=== PATIENT | female | born 1995 | race Caucasian/White ===

== ENCOUNTER 2021-01-14 14:26 | Emergency (ER) | payer OTHER ==
--- NOTE | 2021-01-14 14:46 | ED Physician Documentation ---
PD HPI FEMALE - Stated complaint Stated Complaint: FEMALE /4 WEEKS - Chief complaint Chief Complaint: Abd Pain - History obtained from History obtained from: Patient - History of Present Illness Timing - onset: Today Timing - duration: Days (1) Timing - details: Gradual onset Pain level max: 1 Pain level max: 1 Associated symptoms: Vaginal bleeding (spotting). No: Fever Contributing factors: Recently seen: Not recently seen - Additional information Additional information: 25-year-old female, 2 para 1, presents to the emergency department stating she is about 4 weeks status post her LMP and had 2 positive test on Friday. Today started having spotting and mild cramping. Nothing makes it better or worse. Is not on any contraceptives currently. Has not started vitamins yet. No fever. No chills. Review of Systems Constitutional: denies: Fever, Chills Throat: denies: Sore throat Cardiac: denies: Chest pain / pressure, Palpitations Respiratory: denies: Dyspnea, Cough GI: denies: Nausea, Vomiting, Diarrhea Skin: denies: Rash Musculoskeletal: denies: Neck pain, Back pain Neurologic: denies: Headache PD PAST MEDICAL HISTORY - Past Medical History Past Medical History: No - Past Surgical History Past Surgical History: No - Allergies Allergies/Adverse Reactions: Allergies Allergy/AdvReac Type Severity Reaction Status Date / Time No Known Drug Allergies Allergy Verified 01/14/21 14:35 PD ED PE NORMAL - Vitals Vital signs reviewed: Yes - General General: Alert and oriented X 3, No acute distress, Well developed/nourished - HEENT HEENT: Moist mucous membranes - Neck Neck: Supple, no meningeal sign - Cardiac Cardiac: RRR, Strong equal pulses - Respiratory Respiratory: No respiratory distress, Clear bilaterally - Abdomen Abdomen: Soft, Non tender, Non distended - Back Back: No CVA TTP - Derm Derm: Warm and dry - Neuro Neuro: Alert and oriented X 3 - Psych Psych: Normal mood, Normal affect Results - Vitals Vitals: Vital Signs - 24 hr 01/14/21 01/14/21 14:31 16:35 Temperature 36.4 C L Heart Rate 84 70 Respiratory 15 16 Rate Blood Pressure 132/69 H 116/78 O2 Saturation 99 99 Oxygen O2 Source Room air - Labs Labs: Laboratory Tests 01/14/21 01/14/21 01/14/21 14:46 14:46 14:46 WBC 9.9 RBC 4.44 Hgb 13.1 Hct 38.9 MCV 87.6 MCH 29.5 MCHC 33.7 RDW 12.2 Plt Count 326 MPV 9.5 Neut # (Auto) 7.5 H Lymph # (Auto) 1.7 Ransom # (Auto) 0.5 Eos # (Auto) 0.1 Baso # (Auto) 0.1 Absolute Nucleated RBC 0.00 Nucleated RBC % 0.0 PT 13.7 H INR 1.2 Sodium 138 Potassium 3.7 Chloride 102 Carbon Dioxide 26 Anion Gap 10.0 BUN 8 Creatinine 0.5 Estimated GFR (MDRD) 152 Glucose 98 Calcium 9.1 Total Bilirubin 0.8 AST 21 ALT 31 Alkaline Phosphatase 58 Total Protein 8.1 Albumin 4.6 Globulin 3.5 Albumin/Globulin Ratio 1.3 Lipase 30 HCG, Quant Urine Color Urine Clarity Urine pH Ur Specific [place] Urine Protein Urine Glucose (UA) Urine Ketones Urine Occult Blood Urine Nitrite Urine Bilirubin Urine Urobilinogen Ur Leukocyte Esterase Ur Microscopic Review Urine Culture Comments Blood Type 01/14/21 01/14/21 01/14/21 14:46 14:46 14:52 WBC RBC Hgb Hct MCV MCH MCHC RDW Plt Count MPV Neut # (Auto) Lymph # (Auto) [place]ansom # (Auto) Eos # (Auto) Baso # (Auto) Absolute Nucleated RBC Nucleated RBC % PT INR Sodium Potassium Chloride Carbon Dioxide Anion Gap BUN Creatinine Estimated GFR (MDRD) Glucose Calcium Total Bilirubin AST ALT Alkaline Phosphatase Total Protein Albumin Globulin Albumin/Globulin Ratio Lipase HCG, Quant 234.59 Urine Color YELLOW Urine Clarity CLEAR Urine pH 6.0 Ur Specific [place] 1.015 Urine Protein NEGATIVE Urine Glucose (UA) NEGATIVE Urine Ketones 15 H Urine Occult Blood TRACE-INTA Urine Nitrite NEGATIVE Urine Bilirubin NEGATIVE Urine Urobilinogen 0.2 (NORMAL) Ur Leukocyte Esterase NEGATIVE Ur Microscopic Review NOT INDICATED Urine Culture Comments NOT INDICATED Blood Type A POSITIVE - Rads (name of study) OB US Radiology: Prelim report reviewed, EMP read contemporaneously, See rad report PD MEDICAL DECISION MAKING - ED course Complexity details: reviewed results, re-evaluated patient, considered differential, d/w patient ED course: Patient with likely early versus miscarriage. Her LMP was about 4 weeks ago, hCG is around 250. Ectopic precautions given at bedside. Recommend that she follow-up with OB in 3 days for repeat hCG. Abdomen is soft, nontender nondistended on serial exam. Patient counseled regarding signs and symptoms for which I believe and urgent re-evaluation would be necessary. Patient with good understanding of and agreement to plan and is comfortable going home at this time This document was made in part using voice recognition software. While efforts are made to proofread this document, sound alike and grammatical errors may occur. No findings of are seen. Differential diagnosis includes completed spontaneous miscarriage. Ectopic and early are also possible. Close clinical follow-up with serial beta hCG measurements and serial ultrasound would be recommended, as clinically appropriate. Departure - Departure Disposition: Home, Self Care Clinical Impression: Vaginal bleeding affecting early Condition: Good Instructions: ED Miscarriage Poss Follow-Up: [facility] [Provider Group] - Within 3 Days Comments: You need to have a repeat hCG done in about 3 days. This can be ordered by your doctor or the OB clinic. You can call them on Friday. Your hCG was 235 today. Return if you worsen. Follow-up with OB for further care Discharge Date/Time: 01/14/21 16:43
[2021-01-14 14:56] LABS: BASOPHILS # (AUTO) 0.1 10^3/uL (0.0-0.1); BASOPHILS % (AUTO) 0.9 %; EOSINOPHILS # (AUTO) 0.1 10^3/uL (0.0-0.7); EOSINOPHILS % (AUTO) 1.1 %; HCT - HEMATOCRIT 38.9 % (37.0-47.0); HGB - HEMOGLOBIN 13.1 g/dL (12.0-16.0); LYMPHOCYTES # (AUTO) 1.7 10^3/uL (1.5-3.5); LYMPHOCYTES % (AUTO) 17.4 %; MEAN CORPUSCULAR HEMOGLOBIN 29.5 pg (27.0-31.0); MEAN CORPUSCULAR HGB CONC 33.7 g/dL (32.0-36.0); MEAN CORPUSCULAR VOLUME 87.6 fL (81.0-99.0); MEAN PLATELET VOLUME 9.5 fL (7.9-10.8); MONOCYTES # (AUTO) 0.5 10^3/uL (0.0-1.0); MONOCYTES % (AUTO) 4.7 %; NEUTROPHILS # (AUTO) 7.5 10^3/uL (1.5-6.6); NEUTROPHILS % (AUTO) 75.5 %; PLT - PLATELET COUNT 326 10^3/uL (130-450); RED BLOOD COUNT 4.44 10^6/uL (4.20-5.40); RED CELL DISTRIBUTION WIDTH 12.2 % (12.0-15.0); WHITE BLOOD COUNT 9.9 x10^3/uL (4.8-10.8)
[2021-01-14 14:58] LABS: BILIRUBIN,URINE NEGATIVE (NEGATIVE); GLUCOSE, URINE (UA) NEGATIVE (NEGATIVE); KETONES,URINE (UA) 15 mg/dL (NEGATIVE); LEUKOCYTE ESTERASE, URINE NEGATIVE (NEGATIVE); NITRITE,URINE NEGATIVE (NEGATIVE); OCCULT BLOOD,URINE TRACE-INTA (NEGATIVE); PROTEIN,URINE NEGATIVE (NEGATIVE); UROBILINOGEN,URINE 0.2 (NORMAL) E.U./dL (NORMAL)
[2021-01-14 14:59] LABS: CLARITY,URINE CLEAR (CLEAR)
[2021-01-14 15:03] LABS: INR 1.2 (0.8-1.2); PT - PROTHROMBIN TIME 13.7 secs (9.9-12.6)
[2021-01-14 15:20] LABS: ALBUMIN 4.6 g/dL (3.2-5.5); ALBUMIN/GLOBULIN RATIO 1.3 (1.0-2.2); BILIRUBIN,TOTAL 0.8 mg/dL (0.2-1.0); CALCIUM 9.1 mg/dL (8.5-10.3); CREATININE 0.5 mg/dL (0.4-1.0); POTASSIUM 3.7 mmol/L (3.5-5.0); TOTAL PROTEIN 8.1 g/dL (6.7-8.2)
[2021-01-14 16:44] VITALS: BP 116/78
--- NOTE | 2021-01-14 16:47 | Ultrasound Report ---
PROCEDURE: OB First Trimester w/TV INDICATIONS: pelvic pain and bleeding, 4 weeks preg OUTSIDE/PRIOR DATING DATA: Last menstrual period (LMP): Unsure. LMP-based estimated date of delivery (VINCE): Not applicable. First dating scan (date and location): Not applicable. Estimated date of delivery (VINCE) from first dating scan: Not applicable. TECHNIQUE: Real-time scanning was performed of the fetus and maternal pelvic organs, with image documentation. Endovaginal scanning was also performed to better visualize the fetus and maternal ovaries. COMPARISON: None FINDINGS: Embryo: No findings of an intrauterine can be seen. Measurement variability in dating: +/- 4 weeks by LMP, +/- 7 days by mean sac diameter (use before 6 weeks gestation if crown-rump length not able to be measured), +/- 5 days by crown-rump length (6-12 weeks gestation). Maternal organs: Ovaries demonstrate an apparent right ovarian corpus luteum. There is free fluid se en within the pelvic cul-de-sac. IMPRESSION: No findings of are seen. Differential diagnosis includes completed spontaneous miscarriage. Ectopic and early are also possible. Close clinical follow-up with serial beta hCG measurements and serial ultrasound would be recommended , as clinically appropriate. Note: Concordant preliminary findings given by the newsstand vendor upon the completion of the examination to Dr. Monahan at 4:20 PM on 01/14/2021. Reviewed by: Winston Maddox MD on 01/14/2021 3:45 PM [employer] Approved by: Winston Maddox MD on 01/14/2021 3:45 PM [employer] Station ID: [id number]
== END 2021-01-14 16:43 | disposition home or self-care (01) ==
LOC: ED 14:26
DX: O20.9 Hemorrhage in early pregnancy, unspecified (principal)
CPT/HCPCS: 36415; 80053; 81001; 81003; 83690; 84702; 85025; 85610; 86900; 86901; 87086; 99284

== ENCOUNTER 2021-01-16 16:39 | Day surgery (SDC) | payer OTHER ==
[2021-01-16 17:13] LABS: BASOPHILS # (AUTO) 0.1 10^3/uL (0.0-0.1); BASOPHILS % (AUTO) 0.9 %; EOSINOPHILS # (AUTO) 0.2 10^3/uL (0.0-0.7); EOSINOPHILS % (AUTO) 2.5 %; HGB - HEMOGLOBIN 13.1 g/dL (12.0-16.0); LYMPHOCYTES # (AUTO) 2.3 10^3/uL (1.5-3.5); MEAN CORPUSCULAR HEMOGLOBIN 30.1 pg (27.0-31.0); MEAN CORPUSCULAR HGB CONC 34.5 g/dL (32.0-36.0); MEAN CORPUSCULAR VOLUME 87.4 fL (81.0-99.0); MEAN PLATELET VOLUME 9.3 fL (7.9-10.8); MONOCYTES # (AUTO) 0.6 10^3/uL (0.0-1.0); MONOCYTES % (AUTO) 6.3 %; NEUTROPHILS # (AUTO) 6.4 10^3/uL (1.5-6.6); NEUTROPHILS % (AUTO) 65.9 %; PLT - PLATELET COUNT 347 10^3/uL (130-450); RED BLOOD COUNT 4.35 10^6/uL (4.20-5.40); RED CELL DISTRIBUTION WIDTH 12.2 % (12.0-15.0); WHITE BLOOD COUNT 9.7 x10^3/uL (4.8-10.8)
[2021-01-16 17:27] LABS: ALBUMIN 4.9 g/dL (3.2-5.5); ALBUMIN/GLOBULIN RATIO 1.5 (1.0-2.2); BILIRUBIN,TOTAL 0.6 mg/dL (0.2-1.0); CALCIUM 9.3 mg/dL (8.5-10.3); CREATININE 0.6 mg/dL (0.4-1.0); POTASSIUM 3.6 mmol/L (3.5-5.0); TOTAL PROTEIN 8.2 g/dL (6.7-8.2)
--- NOTE | 2021-01-16 18:37 | ED Physician Documentation ---
History of Present Illness - Stated complaint Stated Complaint: CRAMPS/BLEEDING - Chief complaint Chief Complaint: Abd Pain - Additonal information Additional information: 25-year-old female who is approximately 4 weeks from her last menstrual period presents the emergency department with a mild increase in vaginal spotting however increased lower abdominal cramping and pain. She was seen 2 days ago and had a ultrasound that Did not show an IUP. Patient was to follow-up in 48 hours for repeat hCG or sooner to the ER with pain. no fevers, no vomiting. hCG 48 hours ago was only about 250. Review of Systems Constitutional: reports: Reviewed and negative Ears: reports: Reviewed and negative Nose: reports: Reviewed and negative Throat: reports: Reviewed and negative Cardiac: reports: Reviewed and negative Respiratory: reports: Reviewed and negative GI: reports: Abdominal Pain. denies: Nausea, Vomiting : reports: Reviewed and negative Skin: reports: Reviewed and negative Musculoskeletal: reports: Reviewed and negative Neurologic: reports: Reviewed and negative Psychiatric: reports: Reviewed and negative Endocrine: reports: Reviewed and negative PD PAST MEDICAL HISTORY - Past Surgical History Past Surgical History: No - Present Medications Home Medications: Ambulatory Orders Medication Instructions Recorded Confirmed Pnv No.95/Ferrous Fum/Folic AC 1 tab ORAL DAILY 01/16/21 01/16/21 [ Tablet] - Allergies Allergies/Adverse Reactions: Allergies Allergy/AdvReac Type Severity Reaction Status Date / Time No Known Drug Allergies Allergy Verified 01/16/21 16:55 - Social History Does the pt smoke?: No Smoking Status: Never smoker PD ED PE EXPANDED - General General: Alert, No acute distress - Cardiac Cardiac: Abnormal Rate, Radial strong equal, Pedal strong equal. No: Murmur Present - Respiratory Respiratory: Clear to ausultation jessica. No: Distress, Labored - Abdomen Abdomen: Normal Bowel sounds, Tender to palpation (Generalized nonfocal lower pelvic tenderness to palpation. No guarding or rebound.) - Derm Derm: Normal color, Warm and dry. No: Rash - Extremities Extremities: Normal. No: Deformity, Tenderness - Neuro Neuro: Alert and Oriented X 3, CNII-XII intact - GCS Eye Opening: Spontaneous Motor: Obeys Commands Verbal: Oriented Total: 15 Results - Vitals Vitals: Vital Signs - 24 hr 01/16/21 01/16/21 01/16/21 16:57 19:00 20:13 Temperature 36.7 C 36.7 C 36.7 C Heart Rate 106 H 89 99 Respiratory 18 16 16 Rate Blood Pressure 115/74 118/72 115/87 H O2 Saturation 99 99 98 01/16/21 01/16/21 01/16/21 22:57 23:02 23:07 Temperature 37.7 C 37.7 C 37.7 C Heart Rate 100 120 H 119 H Respiratory 15 15 14 Rate Blood Pressure 108/53 L 112/52 L 114/67 O2 Saturation 100 100 100 01/16/21 01/16/21 23:12 23:21 Temperature 37.7 C 37.7 C Heart Rate 118 H 106 H Respiratory 17 12 Rate Blood Pressure 119/70 110/72 O2 Saturation 98 99 Oxygen O2 Source Room air - Labs Labs: Laboratory Tests 01/16/21 01/16/21 01/16/21 17:10 17:10 18:37 WBC 9.7 RBC 4.35 Hgb 13.1 Hct 38.0 MCV 87.4 MCH 30.1 MCHC 34.5 RDW 12.2 Plt Count 347 MPV 9.3 Neut # (Auto) 6.4 Lymph # (Auto) 2.3 Gage # (Auto) 0.6 Eos # (Auto) 0.2 Baso # (Auto) 0.1 Absolute Nucleated RBC 0.00 Nucleated RBC % 0.0 Sodium 136 Potassium 3.6 Chloride 102 Carbon Dioxide 27 Anion Gap 7.0 BUN 7 Creatinine 0.6 Estimated GFR (MDRD) 123 Glucose 99 Calcium 9.3 Total Bilirubin 0.6 AST 21 ALT 31 Alkaline Phosphatase 55 Total Protein 8.2 Albumin 4.9 Globulin 3.3 Albumin/Globulin Ratio 1.5 Lipase 30 HCG, Quant 357.23 Nasal Adenovirus (PCR) Nasal B. parapertussis DNA (PCR) Nasal Coronavir 229E PCR Nasal Coronavir HKU1 PCR Nasal Coronavir NL63 PCR Nasal Coronavir OC43 PCR Nasal Enterovir/Rhinovir PCR Nasal Influenza B PCR Nasal Influenza A PCR Nasal Parainfluen 1 PCR Nasal Parainfluen 2 PCR Nasal Parainfluen 3 PCR Nasal Parainfluen 4 PCR Nasal RSV (PCR) Nasal B.pertussis DNA PCR Nasal C.pneumoniae (PCR) Jaquan Human Metapneumo PCR Nasal M.pneumoniae (PCR) Nasal SARS-CoV-2 (PCR) Blood Type Antibody Screen 06/01/21 06/01/21 19:00 20:31 WBC RBC Hgb Hct MCV MCH MCHC RDW Plt Count MPV Neut # (Auto) Lymph # (Auto) Gage # (Auto) Eos # (Auto) Baso # (Auto) Absolute Nucleated RBC Nucleated RBC % Sodium Potassium Chloride Carbon Dioxide Anion Gap BUN Creatinine Estimated GFR (MDRD) Glucose Calcium Total Bilirubin AST ALT Alkaline Phosphatase Total Protein Albumin Globulin Albumin/Globulin Ratio Lipase HCG, Quant Nasal Adenovirus (PCR) NOT DETECTED Nasal B. parapertussis DNA (PCR) NOT DETECTED Nasal Coronavir 229E PCR NOT DETECTED Nasal Coronavir HKU1 PCR NOT DETECTED Nasal Coronavir NL63 PCR NOT DETECTED Nasal Coronavir OC43 PCR NOT DETECTED Nasal Enterovir/Rhinovir PCR NOT DETECTED Nasal Influenza B PCR NOT DETECTED Nasal Influenza A PCR NOT DETECTED Nasal Parainfluen 1 PCR NOT DETECTED Nasal Parainfluen 2 PCR NOT DETECTED Nasal Parainfluen 3 PCR NOT DETECTED Nasal Parainfluen 4 PCR NOT DETECTED Nasal RSV (PCR) NOT DETECTED Nasal B.pertussis DNA PCR NOT DETECTED Nasal C.pneumoniae (PCR) NOT DETECTED Jaquan Human Metapneumo PCR NOT DETECTED Nasal M.pneumoniae (PCR) NOT DETECTED Nasal SARS-CoV-2 (PCR) NOT DETECTED Blood Type A POSITIVE Antibody Screen NEGATIVE - Rads (name of study) Pelvic US Radiology: See rad report, Other (Hemoperitoneum with left adnexal mass concerning for ectopic/ruptured ectopic.) PD MEDICAL DECISION MAKING - ED course Complexity details: reviewed results, re-evaluated patient, d/w patient, d/w family, d/w wallpaper consultant (RAISA) ED course: 25-year-old female presents the emergency department for evaluation of new onset lower pelvic pain in the setting of first trimester . Seen here 2 days ago with a quant of 250 however pelvic ultrasound did not reveal an IUP. Her hCG is rising today to nearly 347. Concern in the differential is for an ectopic . 1954: e d tech has called me to the bedside. She does reveal that there is a cystic structure near the left adnexa with possible gestational sac. There is also hemoperitoneum within the abdomen. This is concerning for ectopic versus ruptured ectopic. I have spoken with Dr. Raines on-call for OB and he will be at the bedside emergently. Patient is hemodynamically stable without tachycardia or hypotension. I have advised the nurses to make sure that they have 2 large-bore IVs. Patient is typed and screened. 2034: Dr. Raines at bedside, plans to take the patient emergent to the OR for suspected ruptured ectopic Departure - Departure Disposition: ED Transfer to SDS Clinical Impression: Ectopic Qualifiers: Location of ectopic : unspecified location Intrauterine status: without intrauterine Qualified Code(s): O00.90 - Unspecified ectopic without intrauterine Discharge Date/Time: 01/16/21 22:01
--- NOTE | 2021-01-16 20:47 | HISTORY & PHYSICAL EXAMINATION ---
History and Physical - History and Physical Identification: Patient is a 25-year-old G2, P1 female whose last menstrual period was approximately 11 December. She states she has regular periods.Pelvic pain . History of present illness patient states that she had a last menstrual period of 11 December. She states that 2 days ago she developed pelvic pain as well as bleeding. She was seen in the ED at which time she had a quantitative hCG of 250. She did not have any . Inside the uterus. Last night the pain has continued to increase in strength. Her bleeding also continues at this time. Patient states it hurts to take a deep breath in the pelvic area. She has had an ultrasound which shows evidence of some left adnexal mass as well as left adnexal fluid. The right area showed evidence of possible paraovarian cyst. The uterus is empty at this time. Patient denies any history of any STIs chlamydia or appendicitis. She denies any history of PID. Past medical history is positive for inflamed liver. Surgical history none Allergies none known Current medications vitamins Habits patient is a history of vaping but is stopped since her Social history patient is to an [employer]. She works as a homemaker. Family history is positive for gestational diabetes as well as diabetes and a mother of father who of an NH in her sister who has had difficulty clotting disorders. Physical examination is patient well-developed well-nourished white female She is in no acute distress at this time HEENT pupils are equal round extraocular muscles intact thyroid not palpably enlarged heart regular rate and rhythm pulminarylung wiggins are clear without rales or wheezes abdomen shows tenderness in the pelvic area. There is localized predominantly left lower quadrant. Bowel sounds are active back no spinal or CVA tenderness noted pelvic examination there is brown blood noted in the pelvic vault there is cervical motion tenderness particularly the patient's left. The left adnexal area is also tenderness. Impression most likely this represented a ruptured ectopic . Plan perform laparoscopic diagnosis with probable removal of the left tube. Patient is aware of the possible need to remove the left ovary also. Risks and benefits of explained the patient including those but not limited to bleeding, infection, injury to the pelvic organs. This includes the uterus, tubes, ovaries, bowel, bladder. She is also aware of the potential DVT with PE. Patient is aware that a ruptured ectopic is a very serious condition.
[2021-01-16] MEDS ORDERED: CITRIC ACID/SODIUM CITRATE 15 ML UDC PO ONE ×2 (21:09→21:20)
--- NOTE | 2021-01-16 21:13 | ANESTHESIA ---
Pre-Anesthesia VS, & Labs - Diagnosis Left adenxal mass, possible ectopic - Procedure diagnostic laparoscopy Vital Signs: Temp Pulse Resp BP Pulse Ox 36.7 C 99 16 115/87 H 98 01/16/21 20:13 01/16/21 20:13 01/16/21 20:13 01/16/21 20:13 01/16/21 20:13 Height: 5 ft 4 in Weight (kg): 75.75 kg Body Mass Index: 28.6 BMI Classification: Overweight - NPO Other Last Food Intake: 1600 - Is Patient ?: Yes (HCG positive) - Lab Results Current Lab Results: Laboratory Tests 01/16/21 19:00: Blood Type A POSITIVE, Antibody Screen NEGATIVE 01/16/21 18:37: HCG, Quant 357.23 01/16/21 17:10: Sodium 136, Potassium 3.6, Chloride 102, Carbon Dioxide 27, Anion Gap 7.0, BUN 7, Creatinine 0.6, Estimated GFR (MDRD) 123, Glucose 99, Calcium 9.3, Total Bilirubin 0.6, AST 21, ALT 31, Alkaline Phosphatase 55, Total Protein 8.2, Albumin 4.9, Globulin 3.3, Albumin/Globulin Ratio 1.5, Lipase 30 01/16/21 17:10: WBC 9.7, RBC 4.35, Hgb 13.1, Hct 38.0, MCV 87.4, MCH 30.1, MCHC 34.5, RDW 12.2, Plt Count 347, MPV 9.3, Neut # (Auto) 6.4, Lymph # (Auto) 2.3, [place] # (Auto) 0.6, Eos # (Auto) 0.2, Baso # (Auto) 0.1, Absolute Nucleated RBC 0.00, Nucleated RBC % 0.0 Fish Bones: 01/16/21 17:10 01/16/21 17:10 Home Medications and Allergies Home Medications: Ambulatory Orders Pnv No.95/Ferrous Fum/Folic AC [ Tablet] 1 tab ORAL DAILY 01/16/21 Pnv No.95/Ferrous Fum/Folic AC [ Tablet] 1 tab ORAL DAILY 01/16/21 Allergies/Adverse Reactions: Allergies Allergy/AdvReac Type Severity Reaction Status Date / Time No Known Drug Allergies Allergy Verified 01/16/21 16:55 Anes History & Medical History - Anesthetic History Family history of Anesthesia Complications: Denies Family history of Malignant Hyperthermia: Denies - Medical History Cardiovascular: reports: None Pulmonary: reports: Asthma (last inhalor use >6mo ago) Gastrointestinal: reports: Other ("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 not followed up with) Urinary: reports: None Neuro: reports: None Musculoskeletal: reports: None Endocrine/Autoimmune: reports: None Blood Disorders: reports: None Skin: reports: None Smoking Status: Former smoker (was vaping until ) Psychosocial: reports: No issues indicated History of Cancer?: No Exam General: Alert, Oriented x3, Cooperative, No acute distress Dental: WNL Mouth Openin Fingerbreadth Neck Mobility: Normal Mallampati classification: II Thyromental Distance: 4-6 cm Mental/Cognitive Status: Alert/Oriented X3, Normal for patient Plan Anesthesia Type: General (with RSI) Consent for Procedure(s) Verified and Reviewed: Yes Code Status: Attempt Resuscitation ASA classification: 2-Mild systemic disease Is this case an emergency?: Yes
[2021-01-16] MEDS ORDERED: ATROPINE ABBOJECT 1 MG/10 ML SYRINGE IVP PRN (21:14)
[2021-01-16] MEDS ORDERED: fentaNYL 100 MCG/2 ML VIAL IVP PRN (21:14)
[2021-01-16] MEDS ORDERED: HYDROmorphone 0.5 MG/0.5 ML SYRINGE IVP PRN ×2 (21:14→23:07)
[2021-01-16] MEDS ORDERED: NALOXONE 0.4 MG/ML VIAL IVP PRN (21:14)
[2021-01-16] MEDS ORDERED: MORPHINE 2 MG/ML CARPUJECT IVP PRN (21:14)
[2021-01-16] MEDS ORDERED: ONDANSETRON 4 MG/2 ML VIAL IVP PRN ×2 (21:14→23:07)
[2021-01-16] MEDS ORDERED: PROPOFOL 200 MG/20 ML VIAL IVP ONE (21:17)
[2021-01-16] MEDS ORDERED: LIDOCAINE-MPF 2% 5 ML VIAL ONE (21:17)
[2021-01-16] MEDS ORDERED: MIDAZOLAM 2 MG/2 ML VIAL ONE (21:17)
[2021-01-16] MEDS ORDERED: SUCCINYLCHOLINE 200 MG/10 ML VIAL ONE (21:18)
[2021-01-16] MEDS ORDERED: LIDOCAINE MPF 2%-EPI 1:200000 20 ML VIAL ONE (21:24)
[2021-01-16] MEDS ORDERED: BUPIVACAINE 0.5% PF 30 ML VIAL ONE (21:24)
[2021-01-16 21:35] LABS: B. PARAPERTUSSIS- RESP PCR PAN NOT DETECTED; B. PERTUSSIS- RESP PCR PANEL NOT DETECTED; C. PNEUMONIAE- RESP PCR PANEL NOT DETECTED; CORONAVIRUS 229E-RESP PCR NOT DETECTED; CORONAVIRUS HKU1-RESP PCR NOT DETECTED; CORONAVIRUS NL63-RESP PCR NOT DETECTED; CORONAVIRUS OC43-RESP PCR NOT DETECTED; HUMAN METAPNEUMOVIRUS NOT DETECTED; INFLUENZA A- RESP PCR PANEL NOT DETECTED; INFLUENZA B - RESP PCR PANEL NOT DETECTED; M. PNEUMONIAE- RESP PCR PANEL NOT DETECTED; PARAINFLUENZA VIRUS 1 NOT DETECTED; PARAINFLUENZA VIRUS 2 NOT DETECTED; PARAINFLUENZA VIRUS 3 NOT DETECTED; PARAINFLUENZA VIRUS 4 NOT DETECTED; RHINOVIRUS/ENTEROVIRUS NOT DETECTED; RSV- RESP PCR PANEL NOT DETECTED; SARS-CoV-2 -RESP PCR PANEL NOT DETECTED
--- NOTE | 2021-01-16 21:43 | Ultrasound Report ---
PROCEDURE: OB First Trimester w/TV INDICATIONS: POSSIBLE MISCARRIAGE OUTSIDE/PRIOR DATING DATA: Last menstrual period (LMP): Unsure. Beta-hCG level: 357, increased from 234 on 01/14/2021. TECHNIQUE: Real-time scanning was performed of the fetus and maternal pelvic organs, with image documentation. Endovaginal scanning was also performed to better visualize the fetus and maternal ovaries. COMPARISON: 01/14/2021. FINDINGS: Uterus: No intrauterine identified. No endometrial fluid. Adnexae: The right ovary measures 2.6 x 2.2 x 2.3 cm and the left ovary measures 2.1 x 1.1 x 3.0 cm. And the left adnexa, there is a heterogeneous lobulated masslike structure measuring approximately 4 .1 x 3.0 x 2.7 cm. There is internal vascularity on color Doppler interrogation. A cystic component m easuring up to 1.1 cm is identified within this masslike structure. There is a small cystic structure suggestive of a parapharyngeal cyst in the right adnexa measuring up to 0.8 x 0.6 x 0.8 cm. There is a moderate amount of complex free fluid in the pelvis including within the pelvic cul-de-sac and left adnexa suspicious for hemoperitoneum. IMPRESSION: 1. Heterogeneous left adnexal mass within internal cystic component suspicious for a ruptured ectopic with associated blood clot given the progressive increase in beta hCG. 2. Moderate amount of complex free fluid in the pelvis suspicious for hemoperitoneum. 3. No intrauterine fluid identified. Limited findings reported to Jamee Quiñones at the conclusion of the study by the ultrasound techno logist. Final interpretation discussed with Jamee Quiñones on 01/16/2021 at 9:25 PM. Reviewed by: Aldair Sánchez MD on 01/16/2021 9:41 PM PDT Approved by: Aldair Sánchez MD on 01/16/2021 9:41 PM PDT Station ID: [id number]
[2021-01-16] MEDS ORDERED: ROCURONIUM 50 MG/5 ML VIAL ONE (21:45)
[2021-01-16] MEDS ORDERED: LIDOCAINE MPF 2%-EPI 1:200000 20 ML VIAL SUBQ ONE ×2 (22:00→22:46)
[2021-01-16] MEDS ORDERED: BUPIVACAINE 0.5% PF 30 ML VIAL INFIL ONE ×2 (22:00→22:46)
[2021-01-16] MEDS ORDERED: LACTATED RINGERS 1,000 ML IV SCH (22:00)
[2021-01-16] MEDS ORDERED: DEXAMETHASONE 4 MG/ML VIAL ONE (22:22)
[2021-01-16] MEDS ORDERED: GLYCOPYRROLATE 1 MG/5 ML VIAL ONE (22:42)
[2021-01-16] MEDS ORDERED: NEOSTIGMINE 1 MG/1 ML 10 ML MDV ONE (22:42)
[2021-01-16] MEDS ORDERED: HYDROmorphone 1 MG/ML CARPUJECT ONE (22:45)
[2021-01-16] MEDS ORDERED: LACTATED RINGERS 1,000 ML IV ONE (22:58)
[2021-01-16] MEDS ORDERED: LORazepam 2 MG/ML VIAL IVP PRN (23:07)
--- NOTE | 2021-01-16 23:11 | OPERATIVE REPORT ---
Operative Report - General Procedure Date: 01/16/21 Planned Procedure: Diagnostic laparoscopy with probable left salpingectomy. Pre-Op Diagnosis: Left ectopic Procedure Performed: Diagnostic laparoscopy with left salpingectomy lavage of the peritoneal cavity. Post Op Diagnosis: Left ectopic with hemoperitoneum - Procedure Note Primary Surgeon: Nahun Raines MD Anesthesia Provider: Stanley Martinez CRNA Anesthesia Technique: General ET tube Pathology: Left fallopian tube with probable ectopic IV Fluids (mL): 1,500 Estimated Blood Loss (mL): 25 Urine Output (mL): 50 - Other Other Information/Narrative: Following adequate endotracheal anesthesia patient was placed in the dorsal lithotomy position in [facility]. At this point she was prepped and draped in the usual fashion. A timeout was performed which concerns were addressed. A speculum was then placed in the vagina cervix visualized grasped with a single- tooth tenaculum and then dilated up to 7 mm the uterus is then sounded to 7.5 cm. The restrike hammer operator's gloves were changed and following local anesthesia with mixed 0.5% Marcaine with 2% lidocaine with epinephrine a subumbilical incision was accomplished utilizing a #11 blade. A 5 mm trocar and sheath were then passed into the abdominal cavity on the first pass at this point the abdominal cavity was insufflated and there was noted to have blood smeared all over the entire pelvic bowel. Following once again local anesthesia in both the left and right lower quadrants #11 blade was then used to incision the abdominal cavity and 2 additional 5 mm ports were placed under direct visualization. The pelvis was inspected and there was noted to be a lot of clot in the cul-de-sac. The left fallopian tube had what appeared to be tissue coming through the fimbriated end. The left fallopian tube was then cauterized and transected utilizing the LigaSure across the mesosalpinx all the way to the ovary. The tube was then brought through the incision. The tissue that was then being extruded through the fimbriated end was also brought through the right 5 mm port. The pelvis was then lavaged with copious amounts of sterile saline there is no evidence of any bleeding seen at this time. The appendix was noted to be normal the liver also appeared to be normal. The right fallopian tube and ovary appear to be free of disease. At this point the instruments removed from the abdominal cavity the ports were also removed under direct visualization the CO2 was allowed to escape through the subumbilical port at this point all 3 port sites were closed utilizing 4-0 Monocryl subcuticular with Dermabond on the skin. A speculum was then placed in vagina the uterine manipulator was removed and the fornices were injected bilaterally with a total of 10 cc. Patient tolerated procedure well and was taken recovery in stable condition.
[2021-01-17] MEDS: KETOROLAC 30 MG/ML VIAL IVP PRN ×2 (00:10→06:31)
--- NOTE | 2021-01-17 00:53 | ANESTHESIA POST OP EVALUATION ---
Anesthesia Post Eval - Post Anesthesia Eval Vitals: Last Vital Signs Temp 36.4 C L 01/16/21 23:37 Pulse 107 H 01/16/21 23:37 Resp 14 01/16/21 23:37 BP 112/61 01/16/21 23:37 Pulse Ox 99 01/16/21 23:37 CV Function Including HR & BP: Stable Pain Control: Satisfactory Nausea & Vomiting: Negative Mental Status: Baseline Respiratory Status: Airway Patent Hydration Status: Satisfactory Anesthesia Complications: None
[2021-01-17] MEDS: oxyCODONE 5 MG TABLET PO PRN ×2 (08:01→12:00)
[2021-01-17 08:04] LABS: BILIRUBIN,URINE NEGATIVE (NEGATIVE); GLUCOSE, URINE (UA) NEGATIVE (NEGATIVE); KETONES,URINE (UA) 40 mg/dL (NEGATIVE); LEUKOCYTE ESTERASE, URINE NEGATIVE (NEGATIVE); NITRITE,URINE NEGATIVE (NEGATIVE); OCCULT BLOOD,URINE LARGE (NEGATIVE); PH,URINE 7.5 PH (5.0-7.5); PROTEIN,URINE NEGATIVE (NEGATIVE); UROBILINOGEN,URINE 0.2 (NORMAL) E.U./dL (NORMAL)
[2021-01-17 08:07] LABS: CLARITY,URINE HAZY (CLEAR); HCG UR QUAL POSITIVE
[2021-01-17 08:13] LABS: BACTERIA,URINE Rare /HPF (None Seen); SQUAMOUS EPITHELIAL CELL,UR FEW Squamous (<= Few); WBC,URINE 0-3 /HPF (0-5)
--- NOTE | 2021-01-17 08:14 | PROVIDER PROGRESS NOTE ---
Subjective - General Procedure Date: 01/16/21 Post Op Days: 1 Procedure Performed: LAPROSCOPIC SALPINGECTOMY - Review of Systems Wound/Incisions: positive: Dressing dry and intact General: positive: No symptoms (Pain 02/24. not taking her narcotics) Objective - Patient Data Reviewed Vital Signs: Yes Vital Signs: Vital Signs x48h Temp Pulse Pulse Resp BP BP BP 01/17/21 07:45 37.2 C 91 18 105/62 01/17/21 06:54 36.5 C 67 01/17/21 04:07 36.6 C 118 H 18 112/63 01/17/21 01:47 36.6 C 110 H 16 109/57 L Pulse Ox 01/17/21 07:45 95 01/17/21 06:54 97 01/17/21 04:07 94 01/17/21 01:47 96 Weight: Weight 01/15/21 01/16/21 01/17/21 23:59 23:59 23:59 Weight (kg) 75.75 kg Intake & Output: Intake and Output Totals x24h 01/15/21 01/16/21 01/17/21 23:59 23:59 23:59 Intake Total 30 Output Total 300 Balance -270 - Lab Results Lab Results: 01/16/21 17:10 01/16/21 17:10 Other Lab Results: Lab Results x24hrs 01/17/21 01/16/21 01/16/21 Range/Units 07:50 20:31 19:00 WBC (4.8-10.8) x10^3/uL RBC (4.20-5.40) 10^6/uL Hgb (12.0-16.0) g/dL Hct (37.0-47.0) % MCV (81.0-99.0) fL MCH (27.0-31.0) pg MCHC (32.0-36.0) g/dL RDW (12.0-15.0) % Plt Count (130-450) 10^3/uL MPV (7.9-10.8) fL Neut # (Auto) (1.5-6.6) 10^3/uL Lymph # (Auto) (1.5-3.5) 10^3/uL [place] # (Auto) (0.0-1.0) 10^3/uL Eos # (Auto) (0.0-0.7) 10^3/uL Baso # (Auto) (0.0-0.1) 10^3/uL Absolute Nucleated RBC x10^3/uL Nucleated RBC % /100WBC Sodium (135-145) mmol/L Potassium (3.5-5.0) mmol/L Chloride (101-111) mmol/L Carbon Dioxide (21-32) mmol/L Anion Gap (6-13) BUN (6-20) mg/dL Creatinine (0.4-1.0) mg/dL Estimated GFR (MDRD) (>89) Glucose (70-100) mg/dL Calcium (8.5-10.3) mg/dL Total Bilirubin (0.2-1.0) mg/dL AST (10-42) IU/L ALT (10-60) IU/L Alkaline Phosphatase (42-121) IU/L Total Protein (6.7-8.2) g/dL Albumin (3.2-5.5) g/dL Globulin (2.1-4.2) g/dL Albumin/Globulin Ratio (1.0-2.2) Lipase (22-51) U/L HCG, Quant mIU/mL Urine Color YELLOW Urine Clarity HAZY (CLEAR) Urine pH 7.5 (5.0-7.5) PH Ur Specific [place] 1.015 (1.002-1.030) Urine Protein NEGATIVE (NEGATIVE) mg/dL Urine Glucose (UA) NEGATIVE (NEGATIVE) mg/dL Urine Ketones 40 H (NEGATIVE) mg/dL Urine Occult Blood LARGE H (NEGATIVE) Urine Nitrite NEGATIVE (NEGATIVE) Urine Bilirubin NEGATIVE (NEGATIVE) Urine Urobilinogen 0.2 (NORMAL) (NORMAL) E.U./dL Ur Leukocyte Esterase NEGATIVE (NEGATIVE) Ur Microscopic Review INDICATED Urine Culture Comments Not Reportable Urine HCG, Qual POSITIVE Nasal Adenovirus (PCR) NOT DETECTED Nasal B. parapertussis DNA (PCR) NOT DETECTED Nasal Coronavir 229E PCR NOT DETECTED Nasal Coronavir HKU1 PCR NOT DETECTED Nasal Coronavir NL63 PCR NOT DETECTED Nasal Coronavir OC43 PCR NOT DETECTED Nasal Enterovir/Rhinovir PCR NOT DETECTED Nasal Influenza B PCR NOT DETECTED Nasal Influenza A PCR NOT DETECTED Nasal Parainfluen 1 PCR NOT DETECTED Nasal Parainfluen 2 PCR NOT DETECTED Nasal Parainfluen 3 PCR NOT DETECTED Nasal Parainfluen 4 PCR NOT DETECTED Nasal RSV (PCR) NOT DETECTED Nasal B.pertussis DNA PCR NOT DETECTED Nasal C.pneumoniae (PCR) NOT DETECTED Jaquan Human Metapneumo PCR NOT DETECTED Nasal M.pneumoniae (PCR) NOT DETECTED Nasal SARS-CoV-2 (PCR) NOT DETECTED Blood Type A POSITIVE Antibody Screen NEGATIVE 01/16/21 01/16/21 01/16/21 Range/Units 18:37 17:10 17:10 WBC 9.7 (4.8-10.8) x10^3/uL RBC 4.35 (4.20-5.40) 10^6/uL Hgb 13.1 (12.0-16.0) g/dL Hct 38.0 (37.0-47.0) % MCV 87.4 (81.0-99.0) fL MCH 30.1 (27.0-31.0) pg MCHC 34.5 (32.0-36.0) g/dL RDW 12.2 (12.0-15.0) % Plt Count 347 (130-450) 10^3/uL MPV 9.3 (7.9-10.8) fL Neut # (Auto) 6.4 (1.5-6.6) 10^3/uL Lymph # (Auto) 2.3 (1.5-3.5) 10^3/uL [place] # (Auto) 0.6 (0.0-1.0) 10^3/uL Eos # (Auto) 0.2 (0.0-0.7) 10^3/uL Baso # (Auto) 0.1 (0.0-0.1) 10^3/uL Absolute Nucleated RBC 0.00 x10^3/uL Nucleated RBC % 0.0 /100WBC Sodium 136 (135-145) mmol/L Potassium 3.6 (3.5-5.0) mmol/L Chloride 102 (101-111) mmol/L Carbon Dioxide 27 (21-32) mmol/L Anion Gap 7.0 (6-13) BUN 7 (6-20) mg/dL Creatinine 0.6 (0.4-1.0) mg/dL Estimated GFR (MDRD) 123 (>89) Glucose 99 (70-100) mg/dL Calcium 9.3 (8.5-10.3) mg/dL Total Bilirubin 0.6 (0.2-1.0) mg/dL AST 21 (10-42) IU/L ALT 31 (10-60) IU/L Alkaline Phosphatase 55 (42-121) IU/L Total Protein 8.2 (6.7-8.2) g/dL Albumin 4.9 (3.2-5.5) g/dL Globulin 3.3 (2.1-4.2) g/dL Albumin/Globulin Ratio 1.5 (1.0-2.2) Lipase 30 (22-51) U/L HCG, Quant 357.23 mIU/mL Urine Color Urine Clarity (CLEAR) Urine pH (5.0-7.5) PH Ur Specific [place] (1.002-1.030) Urine Protein (NEGATIVE) mg/dL Urine Glucose (UA) (NEGATIVE) mg/dL Urine Ketones (NEGATIVE) mg/dL Urine Occult Blood (NEGATIVE) Urine Nitrite (NEGATIVE) Urine Bilirubin (NEGATIVE) Urine Urobilinogen (NORMAL) E.U./dL Ur Leukocyte Esterase (NEGATIVE) Ur Microscopic Review Urine Culture Comments Urine HCG, Qual Nasal Adenovirus (PCR) Nasal B. parapertussis DNA (PCR) Nasal Coronavir 229E PCR Nasal Coronavir HKU1 PCR Nasal Coronavir NL63 PCR Nasal Coronavir OC43 PCR Nasal Enterovir/Rhinovir PCR Nasal Influenza B PCR Nasal Influenza A PCR Nasal Parainfluen 1 PCR Nasal Parainfluen 2 PCR Nasal Parainfluen 3 PCR Nasal Parainfluen 4 PCR Nasal RSV (PCR) Nasal B.pertussis DNA PCR Nasal C.pneumoniae (PCR) Jaquan Human Metapneumo PCR Nasal M.pneumoniae (PCR) Nasal SARS-CoV-2 (PCR) Blood Type Antibody Screen - Current Medications Current Medications: Current Medications Generic Name Dose Route Start Last Admin Trade Name Freq PRN Reason Stop Dose Admin Ketorolac Tromethamine 30 mg 01/16/21 23:08 01/17/21 06:31 Ketorolac 30 Mg/Ml Vial IVP 01/21/21 23:07 30 mg Q6HR PRN Administration PAIN Lorazepam 0.5 mg 01/16/21 23:07 01/16/21 23:57 Lorazepam 2 Mg/Ml Vial IVP 0.5 mg Q2H PRN Administration Anxiety Ondansetron HCl 4 mg 01/16/21 23:07 01/17/21 08:01 Ondansetron 4 Mg/2 Ml Vial IVP 4 mg Q6HR PRN Administration Nausea / Vomiting Oxycodone HCl 5 mg 01/16/21 23:07 01/17/21 08:01 Oxycodone 5 Mg Tablet PO 5 mg Q4HR PRN Administration PAIN - Physical Exam Wound/Incisions: positive: Dressing dry and intact General Appearance: positive: Mild distress (pain 7/10 not taking her narcotics) Respiratory: positive: Chest non-tender, No respiratory distress, Breath sounds nml Cardiovascular: positive: Regular rate & rhythm, No murmur, No gallop Abdomen: positive: Nml bowel sounds, Tenderness (As expected post op) Back: negative: CVA tenderness (R), CVA tenderness (L) Extremities: negative: Calf tenderness Impression/Plan - Problem List Problem List: POD # 1 Post op pain as expected. not taking her pain meds. Start IC. Send home when pain under control. RTC 1 week Discharge meds oxycodone 5mg # 15 motrin 800 mg Colace 100 mg Call increased pain, chills or fevers
[2021-01-17 13:01] VITALS: BP 107/67
== END 2021-01-17 13:13 | disposition home or self-care (01) ==
LOC: ED 16:39 → SDS 21:00 → MS2 23:32 → SDS 01-17 13:13
PROVIDERS: ATTEND Obstetrics & Gynecology
PROC: 0UT64ZZ Resection of Left Fallopian Tube, Percutaneous Endoscopic Approach (ICD-10-PCS; 2021-01-16)
PROC: 10T24ZZ Resection of Products of Conception, Ectopic, Percutaneous Endoscopic Approach (ICD-10-PCS; principal; 2021-01-16 21:15)
DX: O00.102 Left tubal pregnancy without intrauterine pregnancy (principal); K66.1 Hemoperitoneum; Z20.822 Contact with and (suspected) exposure to COVID-19; E66.3 Overweight; Z68.28 Body mass index [BMI] 28.0-28.9, adult; Z87.891 Personal history of nicotine dependence
CPT/HCPCS: 0202U; 36415; 59151; 76801; 76817; 80053; 81001; 81025; 83690; 84702; 85025; 86850; 86900; 86901; 99284; 99285; A9270; J0330; J1170; J2060; J7120; 80048; 81003; 87086

== ENCOUNTER 2021-01-23 21:30 | Outpatient (CLI) | payer OTHER | END 2021-01-23 21:31 | disposition home or self-care (01) | LOC: LAB 21:30 | PROVIDERS: ATTEND Obstetrics & Gynecology | DX: Z87.59 Personal history of other complications of pregnancy, childbirth and the puerperium (principal) | CPT/HCPCS: 36415; 84702 ==

== ENCOUNTER 2021-07-28 12:55 | Emergency (ER) | payer OTHER ==
[2021-07-28 13:06] VITALS: BP 136/71
--- NOTE | 2021-07-28 13:16 | ED Physician Documentation ---
History of Present Illness - Stated complaint Stated Complaint: COUGH/CONGESTION - Chief complaint Chief Complaint: Heent - History obtained from History obtained from: Patient - Additonal information Additional information: She got a second Covid vaccine a few days ago. The next day she felt bad with fevers and body aches but now also has cough nasal and chest congestion and a sore throat. Her child has been sick with what sounds like a viral URI. She home tested for Covid and it was negative and she did the same for her child. Review of Systems Constitutional: reports: Chills, Myalgias, Fatigue. 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) : None Musculoskeletal: None Derm: None - Past Surgical History Past Surgical History: No - Present Medications Home Medications: Ambulatory Orders Medication Instructions Recorded Confirmed Pnv No.95/Ferrous Fum/Folic AC 1 tab ORAL DAILY 01/16/21 01/16/21 [ Tablet] Acetaminophen [Acetaminophen Extra 1,000 mg PO Q8H PRN #60 tablet 01/17/21 Strength] Docusate Sodium 100Mg Capsule 100 - 200 mg PO BID PRN #60 cap 01/17/21 [Colace 100Mg Capsule] Ibuprofen [Motrin] 600 mg PO Q6H PRN #60 tab 01/17/21 oxyCODONE [Roxicodone] 2.5 - 5 mg PO Q4H PRN #24 tablet 01/17/21 Albuterol Sulf [Ventolin Hfa 1 - 2 puffs INH Q4HR PRN #1 inhaler 07/28/21 Inhaler] predniSONE [Deltasone] 60 mg PO DAILY 5 Days #15 tablet 07/28/21 - Allergies Allergies/Adverse Reactions: Allergies Allergy/AdvReac Type Severity Reaction Status Date / Time No Known Drug Allergies Allergy Verified 07/28/21 13:06 - Social History Does the pt smoke?: No Smoking Status: Never smoker PD ED PE NORMAL - Vitals Vital signs reviewed: Yes - General General: Alert and oriented X 3, No acute distress - HEENT HEENT: PERRL, EOMI, Pharynx benign - Neck Neck: Supple, no meningeal sign, No bony TTP - Cardiac Cardiac: RRR, No murmur - Respiratory Respiratory: No respiratory distress, Other (Mildly diminished at the bases, nonlabored, she does have a frequent cough.) - Derm Derm: No rash - Neuro Neuro: Alert and oriented X 3, Normal speech Results - Vitals Vitals: Vital Signs - 24 hr 07/28/21 13:00 Temperature 36.8 C Heart Rate 89 Respiratory 15 Rate Blood Pressure 136/71 H O2 Saturation 99 Oxygen O2 Source Room air PD MEDICAL DECISION MAKING - ED course ED course: Despite the proximity to her Covid vaccination, the respiratory symptoms would suggest a viral URI. Covid testing offered and declined. She was tested at home though. Departure - Departure Disposition: 01 Home, Self Care Clinical Impression: Viral bronchitis Condition: Good Record reviewed to determine appropriate education?: Yes Instructions: ED Bronchitis Asthmatic Prescriptions: Albuterol Sulf [Ventolin Hfa Inhaler] 1 - 2 puffs INH Q4HR PRN #1 inhaler PRN Reason: Shortness Of Air/Wheezing predniSONE [Deltasone] 60 mg PO DAILY 5 Days #15 tablet Comments: Call your doctor to arrange a follow-up appointment, make the next available appointment. In the interim, return anytime if worse or if new symptoms develop.
== END 2021-07-28 13:20 | disposition home or self-care (01) ==
LOC: ED 12:55
DX: J20.8 Acute bronchitis due to other specified organisms (principal); B97.89 Other viral agents as the cause of diseases classified elsewhere
CPT/HCPCS: 99282; 99283

== ENCOUNTER 2021-08-28 08:00 | Outpatient (CLI) | payer OTHER ==
[2021-08-28 18:33] LABS: ALBUMIN 4.7 g/dL (3.2-5.5); ALBUMIN/GLOBULIN RATIO 1.3 (1.0-2.2); ALKALINE PHOSPHATASE 65 IU/L (42-121); ALT ALANINE AMINOTRANSFERASE 56 IU/L (10-60); AST ASPARTATE AMINOTRANSFERASE 35 IU/L (10-42); BILIRUBIN,TOTAL 0.7 mg/dL (0.2-1.0); BUN - BLOOD UREA NITROGEN 14 mg/dL (6-20); CALCIUM 9.3 mg/dL (8.5-10.3); CARBON DIOXIDE - CO2 27 mmol/L (21-32); CHLORIDE 100 mmol/L (101-111); CHOL/HDL RATIO 4.6 (<4.4); CHOLESTEROL 224 mg/dL; CREATININE 0.6 mg/dL (0.4-1.0); GFR - MDRD 122 (>89); GLUCOSE 83 mg/dL (70-100); HDL CHOLESTEROL 49 mg/dL; LDL CHOLESTEROL,CALCULATED 155 mg/dL; LDL/HDL RATIO 3.2 (<4.4); SODIUM 136 mmol/L (135-145); TOTAL PROTEIN 8.2 g/dL (6.7-8.2); TRIGLYCERIDES 102 mg/dL; VLDL CHOLESTEROL 20 mg/dL
[2021-08-28 18:42] LABS: T4 (THYROXINE) 8.42 ug/dL (6.09-12.23)
[2021-08-28 18:43] LABS: BASOPHILS # (AUTO) 0.1 10^3/uL (0.0-0.1); BASOPHILS % (AUTO) 1.1 %; EOSINOPHILS # (AUTO) 0.3 10^3/uL (0.0-0.7); EOSINOPHILS % (AUTO) 3.5 %; HCT - HEMATOCRIT 41.5 % (37.0-47.0); HGB - HEMOGLOBIN 13.5 g/dL (12.0-16.0); LYMPHOCYTES # (AUTO) 2.2 10^3/uL (1.5-3.5); LYMPHOCYTES % (AUTO) 29.7 %; MEAN CORPUSCULAR HEMOGLOBIN 28.9 pg (27.0-31.0); MEAN CORPUSCULAR HGB CONC 32.5 g/dL (32.0-36.0); MEAN CORPUSCULAR VOLUME 88.9 fL (81.0-99.0); MEAN PLATELET VOLUME 10.5 fL (7.9-10.8); MONOCYTES # (AUTO) 0.4 10^3/uL (0.0-1.0); MONOCYTES % (AUTO) 5.8 %; NEUTROPHILS # (AUTO) 4.4 10^3/uL (1.5-6.6); NEUTROPHILS % (AUTO) 59.2 %; PLT - PLATELET COUNT 394 10^3/uL (130-450); RED BLOOD COUNT 4.67 10^6/uL (4.20-5.40); WHITE BLOOD COUNT 7.5 x10^3/uL (4.8-10.8)
[2021-08-28 18:45] LABS: THYROID STIMULATING HORMONE 2.19 uIU/mL (0.34-5.60)
[2021-08-28 20:37] LABS: ESTIMATED AVERAGE GLUCOSE 82 mg/dL (70-100); HEMOGLOBIN A1c% 4.5 % (4.27-6.07)
[2021-08-28 23:01] LABS: CHLAMYDIA TRACHOMATIS DNA NEGATIVE (NEGATIVE); NEISSERIA GONORRHOEAE DNA NEGATIVE (NEGATIVE); TRICHOMONAS VAGINALIS DNA NEGATIVE (NEGATIVE)
[2021-08-29 05:49] LABS: ESTRADIOL 139 pg/mL
== END 2021-08-28 23:59 | disposition home or self-care (01) ==
LOC: LAB.WCP 08:00
PROVIDERS: ATTEND Nurse Practitioner
DX: R53.83 Other fatigue (principal); Z13.220 Encounter for screening for lipoid disorders; N92.6 Irregular menstruation, unspecified; E66.3 Overweight; Z11.3 Encounter for screening for infections with a predominantly sexual mode of transmission
CPT/HCPCS: 36415; 80053; 80061; 82626; 82670; 83036; 83721; 84403; 84436; 84443; 85025; 87491; 87591; 87661

== ENCOUNTER 2021-11-26 16:11 | Outpatient (CLI) | payer OTHER | END 2021-11-26 23:59 | disposition home or self-care (01) | LOC: LAB.N 16:11 | PROVIDERS: ATTEND Family Medicine | DX: J45.901 Unspecified asthma with (acute) exacerbation (principal); Z20.822 Contact with and (suspected) exposure to COVID-19 ==

== ENCOUNTER 2021-12-06 09:51 | Outpatient (CLI) | payer OTHER ==
--- NOTE | 2021-12-06 13:36 | Ultrasound Report ---
PROCEDURE: Abdomen Complete INDICATIONS: ABDOMINAL PAIN TECHNIQUE: Real-time scanning was performed of the abdominal and retroperitoneal organs, with image documentatio n. COMPARISON: None. FINDINGS: Liver: Liver is normal in size and homogeneous in echotexture. Liver is diffusely echogenic. Gallbladder: Gallbladder sonographically normal. No gallstones. Gallbladder wall measures 1.3 mm. Biliary ducts: Intrahepatic bile ducts are non-dilated. Extrahepatic bile duct caliber measures 4.2 mm. Normal is 6-7 mm or less in diameter, or 10 mm or less post-cholecystectomy. Pancreas: Visualized portions of the pancreas are sonographically normal. Pancreatic tail not visual ized due to bowel gas and cannot be evaluated. Spleen: Spleen is mildly enlarged measuring 14.3 x 5.5 x 12.8 cm. Liver has normal echotexture. Kidneys: Kidneys are normal in size and echotexture. Right kidney measures 11 point cm long; left k idney measures 12.9 cm long. No hydronephrosis or nephrolithiasis. No solid masses. Aorta: Visualized aorta is normal in caliber at less than 3 cm. Iliacs: Proximal common iliac arteries are normal in caliber at less than 2.5 cm. IVC: Intrahepatic inferior vena cava is patent. Miscellaneous: No free abdominal fluid. IMPRESSION: 1. Hepatic steatosis. 2. Splenomegaly. Reviewed by: Valeria Antunez MD, PhD on 12/06/2021 1:34 PM PDT Approved by: Valeria Antunez MD, PhD on 12/06/2021 1:34 PM PDT Station ID: [id number]
== END 2021-12-06 09:52 | disposition home or self-care (01) ==
LOC: DI 09:51
PROVIDERS: ATTEND Nurse Practitioner Family
DX: K76.0 Fatty (change of) liver, not elsewhere classified (principal); R16.1 Splenomegaly, not elsewhere classified

== ENCOUNTER 2021-12-20 16:03 | Outpatient (CLI) | payer OTHER ==
[2021-12-20 18:16] LABS: BASOPHILS # (AUTO) 0.1 10^3/uL (0.0-0.1); BASOPHILS % (AUTO) 1.1 %; EOSINOPHILS # (AUTO) 0.2 10^3/uL (0.0-0.7); EOSINOPHILS % (AUTO) 2.4 %; HCT - HEMATOCRIT 39.7 % (37.0-47.0); HGB - HEMOGLOBIN 13.2 g/dL (12.0-16.0); LYMPHOCYTES % (AUTO) 23.1 %; MEAN CORPUSCULAR HGB CONC 33.2 g/dL (32.0-36.0); MEAN CORPUSCULAR VOLUME 87.3 fL (81.0-99.0); MEAN PLATELET VOLUME 10.2 fL (7.9-10.8); MONOCYTES # (AUTO) 0.6 10^3/uL (0.0-1.0); MONOCYTES % (AUTO) 6.7 %; NEUTROPHILS # (AUTO) 5.6 10^3/uL (1.5-6.6); NEUTROPHILS % (AUTO) 66.2 %; PLT - PLATELET COUNT 341 10^3/uL (130-450); RED BLOOD COUNT 4.55 10^6/uL (4.20-5.40); RED CELL DISTRIBUTION WIDTH 13.2 % (12.0-15.0); WHITE BLOOD COUNT 8.5 x10^3/uL (4.8-10.8)
[2021-12-20 18:41] LABS: ALBUMIN 4.5 g/dL (3.2-5.5); ALBUMIN/GLOBULIN RATIO 1.1 (1.0-2.2); CALCIUM 9.2 mg/dL (8.5-10.3); CREATININE 0.6 mg/dL (0.4-1.0); POTASSIUM 3.9 mmol/L (3.5-5.0); TOTAL PROTEIN 8.7 g/dL (6.7-8.2)
== END 2021-12-20 16:04 | disposition home or self-care (01) ==
LOC: LAB.N 16:03
PROVIDERS: ATTEND Nurse Practitioner Family
DX: R10.9 Unspecified abdominal pain (principal); R16.1 Splenomegaly, not elsewhere classified; K76.0 Fatty (change of) liver, not elsewhere classified
CPT/HCPCS: 36415; 80053; 85025

== ENCOUNTER 2022-01-28 21:52 | Emergency (ER) | payer OTHER ==
[2022-01-28 22:39] LABS: BASOPHILS # (AUTO) 0.1 10^3/uL (0.0-0.1); BASOPHILS % (AUTO) 0.6 %; EOSINOPHILS # (AUTO) 0.2 10^3/uL (0.0-0.7); EOSINOPHILS % (AUTO) 1.8 %; HCT - HEMATOCRIT 40.2 % (37.0-47.0); HGB - HEMOGLOBIN 13.4 g/dL (12.0-16.0); LYMPHOCYTES % (AUTO) 19.6 %; MEAN CORPUSCULAR HEMOGLOBIN 29.4 pg (27.0-31.0); MEAN CORPUSCULAR HGB CONC 33.3 g/dL (32.0-36.0); MEAN CORPUSCULAR VOLUME 88.2 fL (81.0-99.0); MEAN PLATELET VOLUME 9.4 fL (7.9-10.8); MONOCYTES # (AUTO) 0.8 10^3/uL (0.0-1.0); MONOCYTES % (AUTO) 7.2 %; NEUTROPHILS # (AUTO) 7.3 10^3/uL (1.5-6.6); NEUTROPHILS % (AUTO) 70.5 %; PLT - PLATELET COUNT 326 10^3/uL (130-450); RED BLOOD COUNT 4.56 10^6/uL (4.20-5.40); RED CELL DISTRIBUTION WIDTH 13.2 % (12.0-15.0); WHITE BLOOD COUNT 10.4 x10^3/uL (4.8-10.8)
[2022-01-28 22:50] LABS: ALBUMIN 4.4 g/dL (3.2-5.5); ALBUMIN/GLOBULIN RATIO 1.1 (1.0-2.2); BILIRUBIN,TOTAL 1.1 mg/dL (0.2-1.0); CALCIUM 9.1 mg/dL (8.5-10.3); CREATININE 0.7 mg/dL (0.4-1.0); POTASSIUM 3.6 mmol/L (3.5-5.0); TOTAL PROTEIN 8.4 g/dL (6.7-8.2)
[2022-01-28] MEDS ORDERED: MORPHINE 2 MG/ML CARPUJECT IVP STA (23:20)
[2022-01-28] MEDS ORDERED: SODIUM CHLORIDE 0.9% 1,000 ML IV STA (23:20)
[2022-01-28] MEDS ORDERED: ONDANSETRON 4 MG/2 ML VIAL IVP STA (23:20)
[2022-01-29 00:25] LABS: BILIRUBIN,URINE NEGATIVE (NEGATIVE); GLUCOSE, URINE (UA) NEGATIVE (NEGATIVE); KETONES,URINE (UA) NEGATIVE (NEGATIVE); LEUKOCYTE ESTERASE, URINE NEGATIVE (NEGATIVE); NITRITE,URINE POSITIVE (NEGATIVE); OCCULT BLOOD,URINE NEGATIVE (NEGATIVE); PROTEIN,URINE NEGATIVE (NEGATIVE); UROBILINOGEN,URINE 0.2 (NORMAL) E.U./dL (NORMAL)
[2022-01-29 00:29] LABS: CLARITY,URINE CLEAR (CLEAR); HCG UR QUAL NEGATIVE
[2022-01-29 00:33] LABS: BACTERIA,URINE Rare /HPF (None Seen); RBC,URINE 0-5 /HPF (0-5); SQUAMOUS EPITHELIAL CELL,UR RARE Squamous (<= Few); WBC,URINE 0-3 /HPF (0-5)
--- NOTE | 2022-01-29 00:57 | ED Physician Documentation ---
PD HPI ABD PAIN - Stated complaint Stated Complaint: ABD PX,NAUSEA,DIARRHEA - Chief complaint Chief Complaint: Abd Pain - History obtained from History obtained from: Patient - Additional information Additional information: Patient is a 26-year-old female with a previous history of ectopic presenting for evaluation of generalized abdominal pain since yesterday. Patient reports the pain is all over but worse in the periumbilical region. It is sharp at times. Nothing makes it better or worse. She has associated nausea. She has had 3 loose stools today. No vomiting. No blood in stools.She has not taken anything for her pain. She denies fever, cough, chest pain or difficulty breathing. She denies dysuria or vaginal discharge. She is at the very end of her menstrual cycle. Review of Systems Constitutional: denies: Fever Nose: denies: Congestion Cardiac: denies: Chest pain / pressure, Palpitations Respiratory: denies: Dyspnea, Cough GI: reports: Abdominal Pain, Nausea, Diarrhea. 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) : None Musculoskeletal: None Derm: None - Past Surgical History Past Surgical History: No - Present Medications Home Medications: Ambulatory Orders Medication Instructions Recorded Confirmed Pnv No.95/Ferrous Fum/Folic AC 1 tab ORAL DAILY 01/16/21 01/16/21 [ Tablet] Acetaminophen [Acetaminophen Extra 1,000 mg PO Q8H PRN #60 tablet 01/17/21 Strength] Docusate Sodium 100Mg Capsule 100 - 200 mg PO BID PRN #60 cap 01/17/21 [Colace 100Mg Capsule] Ibuprofen [Motrin] 600 mg PO Q6H PRN #60 tab 01/17/21 oxyCODONE [Roxicodone] 2.5 - 5 mg PO Q4H PRN #24 tablet 01/17/21 Albuterol Sulf [Ventolin Hfa 1 - 2 puffs INH Q4HR PRN #1 inhaler 07/28/21 Inhaler] predniSONE [Deltasone] 60 mg PO DAILY 5 Days #15 tablet 07/28/21 Ondansetron Odt [Zofran] 4 mg TL Q6H PRN #10 tablet 01/29/22 - Allergies Allergies/Adverse Reactions: Allergies Allergy/AdvReac Type Severity Reaction Status Date / Time No Known Drug Allergies Allergy Verified 01/28/22 22:12 - Social History Does the pt smoke?: No Smoking Status: Never smoker PD ED PE NORMAL - General General: Alert and oriented X 3, No acute distress, Well developed/nourished - HEENT HEENT: Atraumatic - Neck Neck: Supple, no meningeal sign - Cardiac Cardiac: RRR, No murmur, Strong equal pulses - Respiratory Respiratory: No respiratory distress, Clear bilaterally - Abdomen Abdomen: Normal bowel sounds, Soft, Non distended, Other (Mild generalized abdominal tenderness to palpation, no rebound, no guarding, no palpable mass) - Derm Derm: Warm and dry - Extremities Extremities: No edema - Neuro Neuro: Normal speech - Psych Psych: Normal mood Results - Vitals Vitals: Vital Signs - 24 hr 01/28/22 01/28/22 01/29/22 22:07 22:12 00:05 Temperature 36.2 C L Heart Rate 102 H 78 98 Respiratory 18 16 20 Rate Blood Pressure 118/76 101/60 111/72 O2 Saturation 99 100 100 01/29/22 01:51 Temperature Heart Rate 84 Respiratory 18 Rate Blood Pressure 101/66 O2 Saturation 98 Oxygen O2 Source Room air - Labs Labs: Laboratory Tests 01/28/22 01/28/22 01/28/22 22:33 22:33 23:30 WBC 10.4 RBC 4.56 Hgb 13.4 Hct 40.2 MCV 88.2 MCH 29.4 MCHC 33.3 RDW 13.2 Plt Count 326 MPV 9.4 Neut # (Auto) 7.3 H Lymph # (Auto) 2.0 [place] # (Auto) 0.8 Eos # (Auto) 0.2 Baso # (Auto) 0.1 Absolute Nucleated RBC 0.00 Nucleated RBC % 0.0 Sodium 137 Potassium 3.6 Chloride 101 Carbon Dioxide 24 Anion Gap 12.0 BUN 13 Creatinine 0.7 Estimated GFR (MDRD) 102 Glucose 97 Calcium 9.1 Total Bilirubin 1.1 H AST 22 ALT 48 Alkaline Phosphatase 64 Total Protein 8.4 H Albumin 4.4 Globulin 4.0 Albumin/Globulin Ratio 1.1 Lipase 31 Urine Color YELLOW Urine Clarity CLEAR Urine pH 6.0 Ur Specific [place] <=1.005 Urine Protein NEGATIVE Urine Glucose (UA) NEGATIVE Urine Ketones NEGATIVE Urine Occult Blood NEGATIVE Urine Nitrite POSITIVE H Urine Bilirubin NEGATIVE Urine Urobilinogen 0.2 (NORMAL) Ur Leukocyte Esterase NEGATIVE Urine RBC 0-5 Urine WBC 0-3 Ur Squamous Epith Cells RARE Squamous Urine Bacteria Rare Ur Microscopic Review INDICATED Urine Culture Comments INDICATED Urine HCG, Qual NEGATIVE PD MEDICAL DECISION MAKING - ED course Complexity details: reviewed results, re-evaluated patient, d/w patient, d/w family ED course: Patient presenting for evaluation of generalized abdominal tenderness with nausea and diarrhea. Vital signs are stable. Labs are unremarkable. CT scans with evidence of gastroenteritis. Patient had improvement in her symptoms while in the ER. No further episodes of diarrhea. Discussed continuing with supportive management. Repeat abdominal exam is benign. No significant lower abdominal tenderness to suggest ovarian or pelvic pathology. Patient is also aware of need for follow-up with primary care doctor. She is advised on return precautions. Departure - Departure Disposition: 01 Home, Self Care Clinical Impression: Generalized abdominal pain Diarrhea Qualifiers: Diarrhea type: presumed infectious Qualified Code(s): R19.7 - Diarrhea, un specified Condition: Stable Instructions: ED Diet Vomiting Diarrhea, ED Gastroenteritis Non Infec Prescriptions: Ondansetron Odt [Zofran] 4 mg TL Q6H PRN #10 tablet PRN Reason: Nausea / Vomiting Comments: You have been evaluated for abdominal pain, nausea and diarrhea. Your labs are reassuring without significant abnormalities. Your vital signs were stable. A CT scan of the abdomen and pelvis was obtained and demonstrates findings of gastroenteritis which is inflammation of the stomach and intestinal tract. Please continue with making sure you stay hydrated. I will also send you home with nausea medication and send a prescription for the same to [facility] in [place].Please also have close follow-up with your primary care doctor. If you have any recurrent episodes of diarrhea, you can try Imodium which is available [id number].Return to the ER if you have any worsening symptoms such as increased pain, vomiting, bloody stools, pain in A new location. Discharge Date/Time: 01/29/22 02:02
--- NOTE | 2022-01-29 01:37 | CT Report ---
PROCEDURE: Abdomen/Pelvis WO INDICATIONS: generalized abdominal pain, nausea, diarrhea TECHNIQUE: Noncontrast 5 mm thick sections acquired from the diaphragms to the symphysis. 5 mm coronal and sagi ttal reformats were then performed. For radiation dose reduction, the following was used: automated exposure control, adjustment of mA and/or kV according to patient size. COMPARISON: None. FINDINGS: Image quality: Excellent. Lung bases:There is minimal dependent atelectasis. Heart: Heart is normal in size. ABDOMEN: Liver:There is diffuse hypoattenuation of the liver consistent with fatty infiltration. Gallbladder: Within normal limits without calcified gallstones. Biliary ducts: No biliary ductal dilatation. Pancreas: Unremarkable. Spleen: Normal in size. Adrenal Glands: No adrenal nodules. Kidneys and Ureters: No hydronephrosis. Stomach and Bowel: Stomach, small bowel loops, and colon are normal in caliber and wall thickness. T he appendix is normal in appearance. There is colonic diverticulosis without acute diverticulitis. Sc attered air-fluid levels are demonstrated throughout the colon without definite abnormal dilatation o r focal transition point. Findings likely represent a gastroenteritis. Peritoneum: No abnormal intraperitoneal fluid. No free air. Ventral Wall: No hernia. Abdominal Nodes: No retroperitoneal or mesenteric adenopathy by size criteria. Vessels: Aorta and inferior vena cava are normal in size. PELVIS: Pelvic Organs: Unremarkable. Bladder: Unremarkable. Pelvic Nodes: No enlarged lymph nodes. Miscellaneous: No inguinal hernias are seen. Bones: Visualized osseous structures demonstrate no suspicious focal lesions. IMPRESSION: 1. Scattered air-fluid levels throughout the colon suggestive of a gastroenteritis. No definite evide nce of bowel obstruction. 2. Colonic diverticulosis without acute diverticulitis. 3. Hepatic steatosis. Reviewed by: Aldair Vasquez MD on 01/29/2022 1:36 AM PDT Approved by: Aldair Vasquez MD on 01/29/2022 1:36 AM PDT Station ID: [id number]
[2022-01-29] MEDS ORDERED: ONDANSETRON ODT 4 MG Prepack 2 TL PRN (01:46)
[2022-01-29 01:53] VITALS: BP 101/66
== END 2022-01-29 02:02 | disposition home or self-care (01) ==
LOC: ED 21:52
DX: R10.84 Generalized abdominal pain (principal); R11.0 Nausea; R19.7 Diarrhea, unspecified
CPT/HCPCS: 36415; 80053; 81001; 81003; 81025; 83690; 85025; 87086; 96361; 96374; 99282

== ENCOUNTER 2022-04-23 08:00 | Outpatient (CLI) | payer OTHER ==
--- NOTE | 2022-04-24 10:28 | XRAY Report ---
PROCEDURE: Chest 2 View X-Ray INDICATIONS: ACUTE COVID-19 TECHNIQUE: 2 view(s) of the chest. COMPARISON: None. FINDINGS: Surgical changes and devices: None. Lungs and pleura: No pleural effusions or pneumothorax. Lungs are clear. Mediastinum: Mediastinal contours are normal. Heart size is normal. Bones and chest wall: No suspicious bony abnormalities. Soft tissues appear unremarkable. IMPRESSION: No acute cardiopulmonary abnormality Reviewed by: Fidel Kumari on 04/24/2022 10:27 AM PDT Approved by: Fidel Kumari on 04/24/2022 10:27 AM PDT Station ID: [id number]
== END 2022-04-23 23:59 | disposition home or self-care (01) ==
LOC: DI.N 08:00
PROVIDERS: ATTEND Nurse Practitioner
DX: U07.1 COVID-19 (principal)